=== PATIENT | female | born 1975 | race Caucasian/White ===

== ENCOUNTER 2017-05-17 10:20 | Emergency (ER) | payer SELFPAY ==
[2017-05-17 10:38] VITALS: BP 119/77; PULSE 89; RESP 19; TEMP 98.8; O2SAT 99
--- NOTE | 2017-05-17 10:50 | ED PDOC ---
HPI: General Adult Time Seen by Provider: 05/17/17 10:48 Chief Complaint (Nursing): Flu-like Symptoms Chief Complaint (Provider): fever/cough/bodyaches History Per: Patient (41 y/o female here for evaluation of fevers/bodyaches/ cough/ear pain x 2 days. 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 No vomiting/diarrea.) Past Medical History Reviewed: Historical Data, Nursing Documentation, Vital Signs Vital Signs: Last Vital Signs Temp 98.8 F 05/17/17 10:35 Pulse 89 05/17/17 10:35 Resp 19 05/17/17 10:35 BP 119/77 05/17/17 10:35 Pulse Ox 99 05/17/17 10:35 - Medical History PMH: Denies: HIV - Family History Family History: States: CAD (mother with coronary artery disease at 67), Diabetes - Immunization History Hx Influenza Vaccination: Yes - Home Medications Home Medications: Ambulatory Orders Medication Instructions Recorded Naproxen [Naprosyn] 500 mg PO Q12 PRN #20 tablet 02/25/16 traMADol [Ultram] 50 mg PO Q8 PRN #10 tab 02/25/16 Benzonatate [Tessalon Perle] 200 mg PO Q8 PRN #30 capsule 03/28/16 Oseltamivir [Tamiflu] 75 mg PO BID #10 cap 03/28/16 Promethazine HCl/Codeine 10 ml PO Q6 PRN #120 ml 03/28/16 [Prometh-Codein 6.25-10 mg/5 ml] Acetaminophen [Acetaminophen Extra 2 tab PO Q6 PRN #24 tablet 05/17/17 Strength] Ibuprofen [Motrin Tab] 800 mg PO Q8 PRN #21 tab 05/17/17 Oseltamivir Phosphate [Tamiflu] 75 mg PO BID #9 capsule 05/17/17 Pseudoephedrine [Sudafed Tab] 60 mg PO Q6 PRN #24 tab 05/17/17 - Allergies Allergies/Adverse Reactions: Allergies Allergy/AdvReac Type Severity Reaction Status Date / Time No Known Allergies Allergy Verified 03/28/16 14:55 Review of Systems ROS Statement: Except As Marked, All Systems Reviewed And Found Negative Constitutional: Positive for: Fever Respiratory: Positive for: Cough Physical Exam - Reviewed Nursing Documentation Reviewed: Yes Vital Signs Reviewed: Yes - Physical Exam Appears: Positive for: Well, Non-toxic, No Acute Distress Head Exam: Positive for: ATRAUMATIC, NORMAL INSPECTION, NORMOCEPHALIC Skin: Positive for: Normal Color, Warm, DRY Eye Exam: Positive for: EOMI, Normal appearance, PERRL ENT: Positive for: Normal ENT Inspection Neck: Positive for: Normal, Painless ROM Cardiovascular/Chest: Positive for: Regular Rate, Rhythm Respiratory: Positive for: CNT, Normal Breath Sounds Gastrointestinal/Abdominal: Positive for: Normal Exam, Bowel Sounds, Soft Back: Positive for: Normal Inspection Extremity: Positive for: Normal ROM Neurologic/Psych: Positive for: Alert, Oriented - ECG O2 Sat by Pulse Oximetry: 99 Disposition - Clinical Impression Clinical Impression: Influenza-like symptoms - Patient ED Disposition Is Patient to be Admitted: No - Disposition Disposition: Routine/Home Disposition Time: 10:50 Condition: FAIR Prescriptions: Acetaminophen [Acetaminophen Extra Strength] 2 tab PO Q6 PRN #24 tablet PRN Reason: Fever >100.4 F Ibuprofen [Motrin Tab] 800 mg PO Q8 PRN #21 tab PRN Reason: Pain, Moderate (4-7) Oseltamivir Phosphate [Tamiflu] 75 mg PO BID #9 capsule Pseudoephedrine [Sudafed Tab] 60 mg PO Q6 PRN #24 tab PRN Reason: Nasal Congestion Instructions: Flu, Adult (DC) Forms: [facility] ([place]), [facility] School/Work Excuse
== END 2017-05-17 11:45 | disposition home or self-care (01) ==
LOC: H.ER 10:20
DX: J11.1 Influenza due to unidentified influenza virus with other respiratory manifestations (principal)